=== PATIENT | male | born 1970 | race Caucasian/White ===

== ENCOUNTER 2018-01-07 19:15 | Emergency (ER) | payer BC ==
[2018-01-07 19:33] VITALS: BP 128/84
--- NOTE | 2018-01-07 20:00 | UC ---
FLU HPI - HPI Summary HPI Summary: 47 y/o male with no PMH, seasonal allergies, presents with several days cough, headache, achy worse with coughing, cough- productive- phlegm, fatigue, malaise , no recent abx use. no fevers, chills. - History of Current Complaint Chief Complaint: UCRespiratory Stated Complaint: CONGESTION,COUGH Time Seen by Provider: 01/07/18 19:59 Hx Obtained From: Patient Onset/Duration: Gradual Onset, Lasting Days Severity Currently: Moderate Severity Initially: Moderate Pain Intensity: 4 Pain Scale Used: 0-10 Numeric - Allergy/Home Medications Allergies/Adverse Reactions: Allergies Allergy/AdvReac Type Severity Reaction Status Date / Time house dust Allergy Unknown Verified 01/07/18 19:33 Reaction Details Home Medications: Home Medications Dm/Acetaminophen/Doxylamine [Vicks Nyquil Cold-Flu Liquid] 1 liq PO BID [History Confirmed 01/07/18] PMH/Surg Hx/FS Hx/Imm Hx Previously Healthy: Yes - seasonal allergies - Surgical History Surgical History: None - Social History Alcohol Use: Daily Alcohol Amount: 1-2 Substance Use Type: None Smoking Status (MU): Former Smoker Review of Systems Constitutional: Fatigue ENT: Sinus Congestion, Sinus Pain/Tenderness Respiratory: Cough Neurological: Headache Is Patient Immunocompromised?: No All Other Systems Reviewed And Are Negative: Yes Physical Exam Triage Information Reviewed: Yes Appearance: No Pain Distress, Well-Nourished, Ill-Appearing - mild Vital Signs: Initial Vital Signs Temp 97.9 F 01/07/18 19:28 Pulse 63 01/07/18 19:28 Resp 16 01/07/18 19:28 BP 128/84 01/07/18 19:28 Pulse Ox 98 01/07/18 19:28 Eyes: Positive: Conjunctiva Clear ENT: Positive: Normal ENT inspection, Pharynx normal, TMs normal - L unable to visualize R, Sinus tenderness - frontal, Uvula midline. Negative: TM bulging, TM dull, TM red, Tonsillar swelling, Tonsillar exudate Neck: Positive: Supple, No Lymphadenopathy, Tenderness @ - over occiput b/l, no cervical spine tenderness Respiratory: Positive: Chest non-tender, Lungs clear, Normal breath sounds, No respiratory distress, No accessory muscle use. Negative: Respiratory distress, Decreased breath sounds, Crackles, Rhonchi, Stridor Cardiovascular: Positive: RRR, No Murmur Flu Course/Dx - Course Course Of Treatment: sinusisits, abx given, follow up with PCP if no improvement within 2 days. tension headache- NSAIDS - Differential Dx/Diagnosis Differential Diagnosis/HQI/PQRI: Other Provider Diagnoses: tension headache, sinusitis Discharge - Sign-Out/Discharge Documenting (check all that apply): Patient Departure All imaging exams completed and their final reports reviewed: No Studies - Discharge Plan Condition: Good Disposition: HOME Prescriptions: Azithromycin TAB* [Zithromax TAB (Z-LORENE) 250 mg #6 tabs] 250 mg PO DAILY #4 tab Patient Education Materials: Sinusitis (ED), Tension Headache (ED) Referrals: Chi Fuentes, [Primary Care Provider] - Additional Instructions: - Increase fluid intake - Motrin/ alleve as needed for headache. - improve posture - antibiotics as directed - follow up with primary physician if no improvement within 2 days - Billing Disposition and Condition Condition: GOOD Disposition: Home - Attestation Statements Provider Attestation: I was available for consult. This patient was seen by the TRAN. The patient was not presented to, seen by, or examined by me. -Lobo
[2018-01-07] MEDS ORDERED: Azithromycin TAB* 250 MG PO ONE (20:19)
== END 2018-01-07 20:30 | disposition home or self-care (01) ==
LOC: UCEAST 19:15
DX: G44.209 Tension-type headache, unspecified, not intractable (principal); J32.9 Chronic sinusitis, unspecified; Z87.891 Personal history of nicotine dependence
CPT/HCPCS: 99212; A9270-GY; G0463

== ENCOUNTER 2019-03-06 20:04 | Emergency (ER) | payer BC ==
[2019-03-06] MEDS ORDERED: Lidocaine 1% w EPI 1:100,000* MDV 20 ML VIAL INJ ONE (20:26)
[2019-03-06] MEDS ORDERED: Lidocaine 2% w/ EPI 1:200,000* 20 ML SDV VIAL ONE (20:29)
--- NOTE | 2019-03-06 20:33 | ED ---
Laceration/Wound HPI - HPI Summary HPI Summary: Pt is a 48 y/o M presenting to the ED with a chief complaint of a L thigh laceration. He states he was playing hockey when he tried to block the puck from going into the net and he kicked the inside of his L thigh with his R skate. He reports bleeding and pain in the L thigh. - History of Current Complaint Stated Complaint: BLEEDING FROM LEG PER NUSRE Time Seen by Provider: 03/06/19 20:23 Hx Obtained From: Patient Mechanism of Injury: Sharp/Blunt Trauma Onset/Duration: Sudden Onset, Lasting Hours, Still Present Aggravating: Movement Alleviating: Compression Timing: Constant Onset Severity: Mild Current Severity: None Pain Intensity: 0 Pain Scale Used: 0-10 Numeric Associated Signs & Symptoms: Negative - Allergy/Home Medications Allergies/Adverse Reactions: Allergies Allergy/AdvReac Type Severity Reaction Status Date / Time house dust Allergy Unknown Verified 01/07/18 19:33 Reaction Details Home Medications: Home Medications Omeprazole 40 mg PO DAILY 03/06/19 [History Confirmed 03/06/19] PMH/Surg Hx/FS Hx/Imm Hx Previously Healthy: Yes Endocrine/Hematology History: Denies: Hx Diabetes Cardiovascular History: Denies: Hx Hypertension Respiratory History: Reports: Hx Asthma - QUIT MEDS DUE TO HEART BURN Denies: Other Respiratory Problems/Disorders Infectious Disease History: No Infectious Disease History: Denies: Traveled Outside the [place] in Last 30 Days - Family History Known Family History: Negative: Hypertension, Diabetes - Social History Alcohol Use: Daily Alcohol Amount: 1-2 Hx Substance Use: No Substance Use Type: Reports: None Hx Tobacco Use: Yes Smoking Status (MU): Former Smoker Review of Systems Positive: Myalgia Positive: Other - laceration All Other Systems Reviewed And Are Negative: Yes Physical Exam - Summary Physical Exam Summary: Appearance: Well-appearing, Well-nourished, lying in bed comfortable Skin: Warm, dry, no obvious rash. L medial thigh: 7cm lac that goes deep into the muscle with fairly brisk oozing of blood but no arterial pulsations. Eyes: sclera anicteric, no conjunctival pallor ENT: mucous membranes moist Neck: deferred Respiratory: No signs of respiratory distress Cardiovascular: Appears well perfused, pulses are nml Abdomen: deferred Musculoskeletal: Moving all 4 extremities without obvious discomfort Neurological: Awake and alert, mentation is normal, speech is fluent and appropriate Psychiatric: affect is normal, does not appear anxious or depressed Triage Information Reviewed: Yes Vital Signs On Initial Exam: Initial Vitals Temp Pulse Resp BP Pulse Ox 99.6 F 78 16 127/72 97 03/06/19 20:05 03/06/19 20:05 03/06/19 20:05 03/06/19 20:05 03/06/19 20:05 Vital Signs Reviewed: Yes Procedures - Sedation Patient Received Moderate/Deep Sedation with Procedure: No - Laceration/Wound Repair 1 Location: lower extremity - L medial thigh Description: Linear Anesthesia: Local, 2.0%, Lido, Epi Betadine Prep?: Yes Irrigated w/ Saline (ccs): 500 Laceration/Wound Explored: clean Closure: Single Layer Debridement: minimal Suture Type: Nylon - 3-0 Number of Sutures: 10 - running Layer Closure?: Yes Sterile Dressing Applied?: Yes - ANTHONY pressure wrap Diagnostics - Vital Signs Vital Signs Temp Pulse Resp BP Pulse Ox 03/06/19 20:05 99.6 F 78 16 127/72 97 - Laboratory Lab Statement: Any lab studies that have been ordered have been reviewed, and results considered in the medical decision making process. Laceration Repair Course/Dx - Course Course Of Treatment: Pt is a 48 y/o M presenting to the ED with a chief complaint of a L thigh laceration. He states he was playing hockey when he tried to block the puck from going into the net and he kicked the inside of his L thigh with his R skate. He reports bleeding and pain in the L thigh. Last tetanus shot was 2010. He will be given one in the ED. On exam, pt has a 7cm lac on the L medial thigh that goes deep into the muscle with fairly brisk oozing of blood but no arterial pulsations. Pt's wound was anesthetized with 10ml 2% lidocaine with epinephrine, irrigated with about 600ccs of nml saline, and closed with 10 running sutures 3-0 nylon sutures. It was wrapped with a pressure wrapping. The pt was instructed to keep it on for at least 24 hours. He is agreeable to this plan. He was given ANTHONY wraps and gauze at the time of discharge to re-wrap the wound tomorrow. Dx is thigh laceration. - Clinical Impression Provider Diagnoses: Thigh laceration Discharge ED - Sign-Out/Discharge Documenting (check all that apply): Patient Departure - Discharge Plan Condition: Stable Disposition: HOME Patient Education Materials: Care For Your Stitches (ED), Laceration (ED) Referrals: Chi Fuentes, [Primary Care Provider] - Additional Instructions: This is a deep wound involving the muscle and there was quite a bit of oozing of blood. The stitches and the pressure dressing we applied should keep that to a minimum but you may still end up with a hematoma under the wound. Leave the present dressing on for the next 24 hours before changing. If the dressing gets wet or dirty you can replace it, just make sure to double up the gauze over the wound the wrap a snug anthony wrap around it to keep pressure on. You can do normal activities but nothing strenuous for at least 2 weeks to allow the wound to start healing properly. Tomorrow evening you should replace the dressing and reapply a pressure dressing like the one we applied tonight. - Billing Disposition and Condition Condition: STABLE Disposition: Home - Attestation Statements Document Initiated by Jacques: Yes Documenting Scribe: Selina Hamlin Provider For Whom Jacques is Documenting (Include Credential): Cruz Anthony MD. Scribe Attestation: Selina Zaidi, nancyed for Cruz Anthony MD. on 03/07/19 at 0120. Scribe Documentation Reviewed: Yes Provider Attestation: The documentation as recorded by the Selina singleton accurately reflects the service I personally performed and the decisions made by , Cruz Anthony MD. Status of Scribe Document: Viewed
[2019-03-06] MEDS ORDERED: Diphth/Teta/Acell Pertusis* 0.5 ML SYR ** FOR 6 WKS TO 7 YRS OLD IM ONE (20:56)
[2019-03-06] MEDS ORDERED: Tetan/Diph/Pertus SYR(Tdap)* 0.5 ML SYR(BOOSTRIX) use SYR contains LATEX IM ONE (21:00)
[2019-03-06] MEDS ORDERED: Lidocaine 2% w/ EPI 1:200,000* 20 ML SDV VIAL INJ ONE (21:14)
[2019-03-06 21:20] VITALS: BP 124/73
== END 2019-03-06 21:19 | disposition home or self-care (01) ==
LOC: ED 20:04
DX: S71.112A Laceration without foreign body, left thigh, initial encounter (principal); M79.10 Myalgia, unspecified site; Z87.891 Personal history of nicotine dependence; J45.909 Unspecified asthma, uncomplicated; W26.9XXA Contact with unspecified sharp object(s), initial encounter; Y93.22 Activity, ice hockey; Y92.9 Unspecified place or not applicable
CPT/HCPCS: 12001; 90715; 99283